=== PATIENT | female | born 1995 | race Caucasian/White ===

== ENCOUNTER 2019-11-12 15:40 | Emergency (ER) | payer BC, OTHER ==
[~2019-11-12] VITALS: Ht 175.2 cm; Wt 61.4 kg
[2019-11-12 15:45] VITALS: BP 112/77
--- NOTE | 2019-11-12 16:11 | ED Cough/URI ---
General Chief Complaint: Cough/Cold/Flu Symptoms Stated Complaint: HEADACHE,FEVER,CHILLS,CHEST PAIN Source: patient History of Present Illness Date Seen by Provider: Nov 12, 2019 Time Seen by Provider: 15:55 Initial Comments 23-year-old female presents with cough, headache, body aches, fevers, chills. Patient has some mild discolored urine but no burning pain. Patient reports her last menstrual very was 2 weeks ago. Patient thinks it might be a little bit of blood. She denies any trauma. Patient has known exposure to influenza be. She does not have any diarrhea. Allergies and Home Medications Allergies Coded Allergies: No Known Drug Allergies (Unverified , 11/12/19) Patient Home Medication List Home Medication List Reviewed: Yes Review of Systems Review of Systems Constitutional: chills, fever, malaise EENTM: throat pain Respiratory: cough; No short of breath Gastrointestinal: No diarrhea; nausea; No vomiting Genitourinary: see HPI Musculoskeletal: see HPI Skin: no symptoms reported Psychiatric/Neurological: No Symptoms Reported Hematologic/Lymphatic: No Symptoms Reported Past Ybqhdpq-Dhiaxa-Sylnhw Hx Past Med/Social Hx: Reviewed Nursing Past Med/Soc Hx Patient Social History Alcohol Use: Denies Use Recreational Drug Use: No Smoking Status: Never a Smoker 2nd Hand Smoke Exposure: No Recent Hopitalizations: No Physical Abuse: No Sexual Abuse: No Mistreated: No Fear: No Seasonal Allergies Seasonal Allergies: No Past Medical History Surgeries: Yes Thyroidectomy Respiratory: No Neurological: Yes Headaches /Migraines Genitourinary: No Gastrointestinal: No Musculoskeletal: No Endocrine: Yes Hypothyroidsim HEENT: No Cancer: No Psychosocial: No Integumentary: No Blood Disorders: No Physical Exam Capillary Refill : Height: '" Weight: lbs. oz. kg; BMI Method: General Appearance: other (obviously not feeling well) Eyes: Bilateral Eye Normal Inspection Neck: full range of motion, supple Respiratory: lungs clear, normal breath sounds Cardiovascular: normal peripheral pulses, regular rate, rhythm, no edema Gastrointestinal: non tender, soft Neurologic/Psychiatric: pulper tender II-XII nml as tested, alert, normal mood/affect, oriented x 3 Skin: normal color, warm/dry Lymphatic: no adenopathy Progress/Results/Core Measures Suspected Sepsis SIRS Temperature: Pulse: Respiratory Rate: Blood Pressure / Mean: Results/Orders Vital Signs/I&O Capillary Refill : Progress Note : Time: 16:09 Progress Note Patient with known exposure in contact with multiple influenza B cases. Patient would likely influenza B however she is at over 48 hours after her symptoms started. Due to this we will not prescribe her Tamiflu. I did discuss with her ksiu-ysp-qbzbwno supportive care. Patient with hematuria but no burning stain itching or other signs of infection. I discussed with her that most urinary tract infections resolve on their own. That I will prescribe her Macrobid and that if her symptoms do not improve over the next couple days she should fill it taken a course and then have her urine checked. If she develops any flank pain or other symptoms consistent with a kidney stone she should be further evaluated. Patient is stable will be discharged home Departure Impression Primary Impression: Influenza B Additional Impression: Hematuria Qualified Codes: R31.0 - Gross hematuria Disposition: 01 HOME, SELF-CARE Condition: Stable Departure-Patient Inst. Referrals: DAVIDA CHO MD (PCP/Family) Primary Care Physician Patient Instructions: Flu, Adult (DC), Blood in the Urine (Hematuria) in Adults Add. Discharge Instructions: Drink plenty of fluids I would stay home for 5 days to prevent the spread Emergency department focuses on treating and ruling out life-threatening diseases. Whenever possible, a diagnosis is given. However, most patients are given an impression based on their history, physical exam, and workup during your brief time in the ER. Information about probable diagnosis and other educational material has been provided. Please take the time to read and understand this information. It is very important that you follow up with a physician as discussed during the visit today. Failure to adhere to your follow-up instructions may lead to severe disability, injury, or so please make sure to keep your appointments or obtain one as requested. Please keep in mind the emergency department is not designed to your primary care or "family doctor" and nonurgent issues are best evaluated by an outpatient physician All discharge instructions reviewed with patient and/or family. Voiced understanding. Scripts Ondansetron (Ondansetron Odt) 4 Mg Tab.rapdis 4 MG PO Q6H PRN for NAUSEA/VOMITING, #20 TAB 0 Refills Prov: URIEL ARROYO DO 11/12/19 Nitrofurantoin Macrocrystal (Nitrofurantoin) 100 Mg Capsule 100 MG PO BID, #10 CAP 0 Refills Prov: URIEL ARROYO DO 11/12/19 URIEL ARROYO DO Nov 12, 2019 16:11
[2019-11-12] MEDS ORDERED: NITR100C PO (16:12)
[2019-11-12] MEDS ORDERED: ONDA4TAB11 PO (16:13)
--- OUTSIDE RECORDS SUMMARY | 2019-11-13 20:11 | XMS REPORT | Continuity of Care Document ---
Author Organization Unknown Address Unknown Phone Unavailable Allergies There is no data. Medications There is no data. Problems There is no data. Procedures There is no data. Results Test Result Range SUREPATH PAP RFX HPV mRNA E6/E7 - 10:20 CLINICAL INFORMATION: NRG LMP: NRG PREV. PAP: NRG PREV. BX: NRG SOURCE: Endocervix NRG STATEMENT OF ADEQUACY: NRG INTERPRETATION/RESULT: NRG STERILIZATION TECH: NRG REVIEW STERILIZATION TECH: NRG COMMENT NRG Encounters ACCT No. Visit Date/Time Discharge Status Pt. Type Provider Facility Loc./Unit Complaint [id number] 05/31/2019 10:15:00 05/31/2019 23:59: 59 CLS Outpatient [facility] [id number] 04/20/2019 10:15:00 Document Registration
== END 2019-11-12 16:18 | disposition home or self-care (01) ==
LOC: ER FS 15:43
DX: J10.1 Influenza due to other identified influenza virus with other respiratory manifestations (principal); R31.9 Hematuria, unspecified
CPT/HCPCS: 99282

== ENCOUNTER 2021-02-24 10:38 | Emergency (ER) | payer BC, OTHER ==
[~2021-02-24] VITALS: Ht 175.3 cm; Wt 58.1 kg
[~2021-02-24 10:38] MED LIST: NITR100C PO; ONDA4TAB11 PO
[2021-02-24 10:49] VITALS: BP 99/69
[2021-02-24] MEDS ORDERED: FLUORESCEIN (FLUOR-I-STRIPS) 1 MG STRP ONE (10:53)
[2021-02-24] MEDS ORDERED: RT-SODIUM CHL INHALATION 3 ML VIAL ONE (10:55)
[2021-02-24] MEDS ORDERED: ERYTHROMYCIN OPHTH OINT 1 GM (SINGLE USE) TUBE OP STA (11:15)
--- NOTE | 2021-02-24 11:17 | ED EENT ---
History of Present Illness General Chief Complaint: Eye Problems Stated Complaint: LEFT EYE PAIN Nursing Triage Note: Patient reports she had a spot of blurred vision in her left eye yesterday, states she took her contacts out and flushed her eye, but still had blurred vision. She reports she woke this morning and her left eye was red, swollen, and painful. She states she went to walk-in care and the practitioner used numbing drops and looked at her eye with stain and a black light. Walk-in care provider called report to the ED and stated she did not think patient's eye looked like a typical corneal abrasion, states she referred her to the ED so she could have her eye pressure checked. History of Present Illness Date Seen by Provider: Feb 24, 2021 Time Seen by Provider: 11:14 Initial Comments Three 5-year-old female presents with left eye problems, see nurse's note above. Seen in urgent care this morning and sent here for reevaluation. States that she was having slurred vision before removing her contact last night. This morning her left eye was red swollen and uncomfortable. Allergies and Home Medications Allergies Coded Allergies: No Known Drug Allergies (Unverified , 11/12/19) Home Medications Nitrofurantoin Macrocrystal 100 Mg Capsule, 100 MG PO BID Prescribed by: URIEL ARROYO on 11/12/19 1612 Ondansetron 4 Mg Tab.rapdis, 4 MG PO Q6H PRN for NAUSEA/VOMITING Prescribed by: URIEL ARROYO on 11/12/19 1613 Patient Home Medication List Home Medication List Reviewed: Yes Review of Systems Review of Systems Constitutional: No fever, No malaise, No weakness Eyes: Denies Blindness; Blurred Vision; Denies Foreign Body Sensation; Inflammation, Pain; Denies Photophobia, Denies Previous Injury, Denies Shadows, Denies Tunnel Vision; Vision Changes, Contact Lenses; Denies Glasses Ears: No Symptoms Reported Neurological: Denies Headache, Denies Numbness, Denies Paresthesia, Denies Weakness Past Mxrohlc-Tkznyu-Itnnpk Hx Past Med/Social Hx: Reviewed Nursing Past Med/Soc Hx Patient Social History Alcohol Use: Denies Use Smoking Status: Never a Smoker 2nd Hand Smoke Exposure: No Recent Infectious Disease Expo: No Recent Hopitalizations: No Seasonal Allergies Seasonal Allergies: No Past Medical History Surgeries: Yes Appendectomy, Thyroidectomy Respiratory: No Cardiac: No Neurological: Yes Headaches /Migraines Genitourinary: No Gastrointestinal: No Musculoskeletal: No Endocrine: Yes Hypothyroidsim HEENT: No Cancer: No Psychosocial: No Integumentary: No Blood Disorders: No Physical Exam Vital Signs Vital Signs - First Documented 02/24/21 10:49 Temp 36.9 Pulse 58 Resp 18 B/P (MAP) 99/69 (79) Pulse Ox 100 O2 Delivery Room Air Height, Weight, BMI Height: '" Weight: lbs. oz. kg; 18.00 BMI Method: General Appearance: WD/WN, no apparent distress Eyes: left eye conjunctival inflammation, left eye corneal abrasion (crescent shape lower half of cornea (outline of a contact lens)), left eye lid inflammation; bilateral eye PERRL, bilateral eye EOMI Procedures/Interventions Eye : Location: left eye Anesthesia (gtts): Tetracaine Progress/Procedure Conclusion obvious large corneal abrasion in shape of contact lens lower 1/2 of cornea. Much better after getting tetracaine gtts. Instructed on Abx ointment and imperative to see Doctor Osteopathic tomorrow for re-eval. Progress/Results/Core Measures Results/Orders My Orders Orders - SHAR AGARWAL DO Fluorescein Strips (Vhixu-K-Fbnivs) (02/24/21 10:53) Sodium Chl Inhalation (Rt-Sodium Chl Inh (02/24/21 10:55) Erythromycin Ophth Oint (Erythromycin Op (02/24/21 11:15) Vital Signs/I&O 02/24/21 10:49 Temp 36.9 Pulse 58 Resp 18 B/P (MAP) 99/69 (79) Pulse Ox 100 O2 Delivery Room Air Blood Pressure Mean: 79 Departure Impression Primary Impression: Corneal abrasion Qualified Codes: S05.02XA - Injury of conjunctiva and corneal abrasion without foreign body, left eye, initial encounter Disposition: 01 HOME, SELF-CARE Condition: Improved Departure-Patient Inst. Decision time for Depature: 11:15 Referrals: DAVIDA CHO MD (PCP/Family) Primary Care Physician Patient Instructions: Corneal Abrasion (DC) Add. Discharge Instructions: Call your EYE doctor tomorrow morning to schedule an "ER follow-up" visit for your corneal abrasion. Do Not Rub your eye. Apply the antibiotic ointment every hours. Do not wear a contact in your left eye All discharge instructions reviewed with patient and/or family. Voiced understanding. SHAR AGARWAL DO Feb 24, 2021 11:17
== END 2021-02-24 11:26 | disposition home or self-care (01) ==
LOC: EDUNIT# 10:38 → ER FS 10:40
DX: S05.02XA Injury of conjunctiva and corneal abrasion without foreign body, left eye, initial encounter (principal); X58.XXXA Exposure to other specified factors, initial encounter
CPT/HCPCS: 99282